=== PATIENT | female | born 1965 | race American Indian/Alaskan Native ===

== ENCOUNTER 2017-06-12 11:26 | Outpatient (CLI) | payer MEDICAID ==
--- NOTE | 2017-06-12 13:30 | Mammography Report ---
BILATERAL DIGITAL DIAGNOSTIC MAMMOGRAM WITH CAD: 06/12/17 CLINICAL: Breast cancer survivor status post right mastectomy and right TRAM reconstruction . She complains of pain and mass in the right breast. COMPARISON:None available. FINDINGS: The left breast is heterogeneously dense, which may obscure small masses. Normal appearance of the right TRAM reconstruction the. No mass, architectural distortion or suspicious calcifications. IMPRESSION: Negative mammogram. However, recommend right breast ultrasound for a more complete evaluation of the right breast reconstruction and chest wall. BI-RADS CATEGORY: 0--Needs Additional Imaging COMMENT: Patient follow-up letters are generated by our [employer] application.
== END 2017-06-12 11:27 | disposition home or self-care (01) ==
LOC: SPVWC 11:26
DX: N63.10 Unspecified lump in the right breast, unspecified quadrant (principal); N64.4 Mastodynia; R92.8 Other abnormal and inconclusive findings on diagnostic imaging of breast; Z90.11 Acquired absence of right breast and nipple
CPT/HCPCS: 77066

== ENCOUNTER 2017-06-16 10:56 | Outpatient (CLI) | payer MEDICAID ==
--- NOTE | 2017-06-16 12:38 | Ultrasound Report ---
RIGHT BREAST ULTRASOUND: 06/16/17 10:56:00 CLINICAL: Breast cancer survivor status post right mastectomy and right TRAM reconstruction in 2014. She complains of a lump in the upper outer reconstructed right breast and pain around the TRAM flap. COMPARISON: 06/12/17 mammogram. FINDINGS: Ultrasound of the right breast(including all four quadrants and the retroareolar area) was performed and demonstrated no mass, cyst or fluid collection. Firm palpable cordlike scar is identified at the edge of the reconstructed breast at 10 o'clock. Ultrasound of the right axilla demonstrated a single lymph node with central fat a benign morphology measuring 1.4 x 0.4 x 1.2 cm. No suspicious lymph node. I palpated the reconstructed right breast and chest wall felt no mass or lump. However, the right rib cage and chest wall are tender to palpation. There is a small midline epigastric hernia which is nontender. IMPRESSION: Benign scar and no suspicious finding. BI-RADS 2 - - Benign RECOMMENDATION: Consultation with a breast surgeon regarding the pain in the chest wall. Recommend routine mammographic screening in one year.
== END 2017-06-16 10:57 | disposition home or self-care (01) ==
LOC: SPVWC 10:56
DX: N63.11 Unspecified lump in the right breast, upper outer quadrant (principal); N64.89 Other specified disorders of breast; R92.8 Other abnormal and inconclusive findings on diagnostic imaging of breast